=== PATIENT | male | born 1955 | race Caucasian/White ===

== ENCOUNTER 2018-06-12 14:07 | Emergency (ER) | payer SELFPAY ==
[2018-06-12] MEDS ORDERED: IBUPROFEN 400 MG TABLET PO ONE (14:31)
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
--- NOTE | 2018-06-14 19:47 | RADIOLOGY REPORT ---
EXAM: HIP,BILATERAL W/PELVIS 2 VIEWS HISTORY: PAIN. TECHNIQUE: A single AP view of the pelvis, AP and frog-leg views of the right hip were performed. FINDINGS: There is severe joint space narrowing, hypertrophic spurring, and bony cyst formation. There is mild bony deformity of the femoral head. IMPRESSION: SEVERE OSTEOARTHRITIC CHANGES OF THE RIGHT HIP. JOB NUMBER: [id number] MTDD
== END 2018-06-12 16:25 | disposition home or self-care (01) ==
LOC: ER 14:07
DX: M16.11 Unilateral primary osteoarthritis, right hip (principal); G89.21 Chronic pain due to trauma; M25.561 Pain in right knee; M54.5 Low back pain; F17.210 Nicotine dependence, cigarettes, uncomplicated
CPT/HCPCS: 73521; 99283